=== PATIENT | female | born 1985 | race American Indian/Alaskan Native ===

== ENCOUNTER 2018-12-30 17:51 | Outpatient (CLI) | payer BC ==
[2018-12-30] MEDS ORDERED: LACTATED RINGERS 500 ML IV ONE (18:35)
[2018-12-30 18:48] LABS: Bilirubin,Urine NEG (Negative); Blood,Urine NEG (Negative); Color,Urine Yellow (Yellow); Mucus,Urine FEW /HPF; Protein,Urine <15 mg/dL mg/dL (Negative); Urobilinogen,Urine < 2.0 mg/dL (<2.0)
[2018-12-30 18:49] VITALS: BP 92/60
== END 2018-12-30 19:08 | disposition home or self-care (01) ==
LOC: TRG 17:51
PROVIDERS: ATTEND Obstetrics & Gynecology
DX: O47.02 False labor before 37 completed weeks of gestation, second trimester (principal); Z3A.21 21 weeks gestation of pregnancy
CPT/HCPCS: 59025; 81001

== ENCOUNTER 2019-05-15 19:00 | Outpatient (CLI) | payer BC ==
[2019-05-15 21:55] VITALS: BP 110/59
== END 2019-05-15 23:03 | disposition home or self-care (01) ==
LOC: TRG 19:00
PROVIDERS: ATTEND Obstetrics & Gynecology
DX: O62.9 Abnormality of forces of labor, unspecified (principal); Z3A.40 40 weeks gestation of pregnancy
CPT/HCPCS: 59025

== ENCOUNTER 2019-05-20 08:03 | Inpatient (IN) | payer BC ==
[2019-05-20] MEDS: LACTATED RINGERS 1,000 ML IV SCH (09:50)
[2019-05-20] MEDS ORDERED: LACTATED RINGERS 1,000 ML ONE (11:12)
[2019-05-20] MEDS ORDERED: BRETHINE SUB-Q PRN (12:55)
[2019-05-20] MEDS ORDERED: MINERAL OIL PO PRN (12:55)
[2019-05-20] MEDS ORDERED: PITOCin/NS 30 UNIT/500ML 30 UNITS/500 ML BAG IV SCH (13:00)
--- NOTE | 2019-05-20 13:03 | History and Physical Report ---
History of Present Illness Date of examination: 05/20/19 (pt presents for postdates IOL) Date of admission: 05/20/19 08:03 History of present illness: EDC Confirmation: 05/10/2019 Gestational Age: 8 4/7 weeks Past History : 1 Term Births: 0 Premature Births: 0 Living Children: 0 Para: 0 Mult. Births: 0 Prev : 0 Aborta: 0 Elect. Ab: 0 Spont. Ab: 0 Ectopics: 0 Past Medical History: Reviewed history from 09/24/2018 and no changes required: Kidney Stone 2009 Past Surgical History: Reviewed history from 09/10/2008 and no changes required: Negative Past Surgical History Family History Summary: Reviewed history Last on 04/05/2016 and no changes required:10/02/2018 Other family member - Has No Family History of Biliary Tract Cancer - Entered On: 09/24/2018 Other family member - Has No Family History of Breast Cancer - Entered On: 09/24/2018 Other family member - Has No Family History of Brain Cancer - Entered On: 09/24/2018 Other family member - Has No Family History of Colon Cancer - Entered On: 09/24/2018 Other family member - Has No Family History of Spontaneous DVT-PE - Entered On: 09/24/2018 Other family member - Has No Family History of Kidney/Urinary Tract Cancer - Entered On: 09/24/2018 Other family member - Has No Family History of Ovarvian Cancer - Entered On: 09/24/2018 Other family member - Has No Family History of Pancreatic Cancer - Entered On: 09/24/2018 Other family member - Has No Family History of Stomach Cancer - Entered On: 09/24/2018 Other family member - Has No Family History of Small Bowel Cancer - Entered On: 09/24/2018 Other family member - Has No Family History of Uterine Cancer - Entered On: 09/24/2018 General Comments - FH: No Family History of Breast Cancer No Family History of Colon Cancer No Family History of Ovarian Cancer No Family History of DVT/PE on OCP Social History: Reviewed history from 04/05/2016 and no changes required: Patient is single active: weekly Smoking History: Patient has never smoked. 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 Infection History HIV Risk Eval: no Genetic History Congenital Heart Defect: Mom: no Dad: no Norah Disease: Mom: no Dad: no Thalassemia Mom: no Dad: no Neural Tube Defect Mom: no Dad: no Down's Syndrome Mom: no Dad: no Igor-Sachs Mom: no Dad: no Sickle Cell Disease/Trait Mom: no Dad: no Hemophilia Mom: no Dad: no Muscular Dystrophy Mom: no Dad: no Cystic Fibrosis Mom: no Dad: no [place] Chorea Mom: no Dad: no Mental Retardation Mom: no Dad: no Fragile X Mom: no Dad: no Other Genetic/Chromosomal Disorder Mom: no Dad: no Child w/other defect Mom: no Dad: no Active Medications (reviewed today): PLUS 27-1 MG ORAL TABLET ( VIT-FE FUMARATE-FA) 1 po daily Current Allergies (reviewed today): No known allergies Past History - Obstetrical History Expected Date of Delivery: 05/09/19 Actual Gestation: 41 Week(s) 4 Day(s) : 1 Para: 0 Hx # Term Pregnancies: 0 Number of Pregnancies: 0 Spontaneous Abortions: 0 Induced : 0 Number of Living Children: 0 Medications and Allergies Allergies Allergy/AdvReac Type Severity Reaction Status Date / Time No Known Allergies Allergy Verified 12/30/18 18:14 Active Meds: Active Medications Ephedrine Sulfate (Ephedrine Sulfate) 10 mg IV Q2M PRN PRN Reason: Hypotension Oxytocin/Sodium Chloride (Pitocin/Ns 20 Unit/1000ml Drip) 20 units in 1,000 mls @ 125 mls/hr IV DIRECT ADA Mineral Oil (Mineral Oil) 30 ml PO QHS PRN PRN Reason: Constipation Terbutaline Sulfate (Brethine) 0.25 mg SUB-Q ONCE PRN PRN Reason: Hyperstimulation/Hypertonicity - Vital Signs Vital signs: Vital Signs Temp Pulse Resp BP 98.4 F 85 18 106/65 05/20/19 09:33 05/20/19 09:33 05/20/19 09:33 05/20/19 09:33 Temp Pulse Resp BP Pulse Ox 98.4 F 85 18 106/65 05/20/19 09:33 05/20/19 09:35 05/20/19 09:33 05/20/19 09:35 - Physical Exam Breasts: Positive: deferred Cardiovascular: Regular rate, Normal S1, Normal S2 Lungs: Positive: Normal air movement Abdomen: Positive: normal appearance, soft, normal bowel sounds. Negative: distention, tenderness Genitourinary (Female): Positive: normal external genitalia Vulva: both: normal Vagina: Positive: normal moisture. Negative: discharge Cervix: Negative: lesion, discharge Uterus: Positive: normal size, normal contour Adnexa: both: normal Anus/Rectum: Positive: normal perianal skin, heme negative. Negative: rectal mass, hemorrhoids Extremities: Positive: normal Deep Tendon Reflex Grade: Normal +2 - Obstetrical FHR: category 1 Uterine Contraction Monitor Mode: External Cervical Dilatation: 0 Cervical Effacement Percentage: 30 station: -3 Uterine Contraction Pattern: Irregular Uterine Tone Measurement Phase: Resting Uterine Contraction Intensity: Mild Results Result Diagrams: 05/20/19 10:10 All other labs normal. GBS Negative HBsAg Screen Negative Negative *1 RPR Non Reactive Non Reactive *2 Rubella Antibodies, IgG 21.00 index Immune >0.99 *3 Non-immune <0.90 Equivocal 0.90 - 0.99 Immune >0.99 ABO Grouping A *4 Rh Factor Positive *5 Please note: Prior records for this patient's ABO / Rh type are not available for additional verification. Antibody Screen Negative Negative *6 WBC 5.9 x10E3/uL 3.4-10.8 *7 RBC 3.93 x10E6/uL 3.77-5.28 *8 Hemoglobin 12.0 g/dL 11.1-15.9 *9 Hematocrit 35.7 % 34.0-46.6 *10 MCV 91 fL 79-97 *11 MCH 30.5 pg 26.6-33.0 *12 MCHC 33.6 g/dL 31.5-35.7 *13 RDW 13.7 % 12.3-15.4 *14 Platelets 166 x10E3/uL 150-379 *15 Neutrophils 61 % Not Estab. *16 Lymphs 28 % Not Estab. *17 Monocytes 8 % Not Estab. *18 Eos 2 % Not Estab. *19 Basos 1 % Not Estab. *20 ! Immature Cells <No Reported Value> *21 Neutrophils (Absolute) 3.7 x10E3/uL 1.4-7.0 *22 Lymphs (Absolute) 1.6 x10E3/uL 0.7-3.1 *23 Monocytes(Absolute) 0.5 x10E3/uL 0.1-0.9 *24 Eos (Absolute) 0.1 x10E3/uL 0.0-0.4 *25 Baso (Absolute) 0.0 x10E3/uL 0.0-0.2 *26 ! Immature Granulocytes 0 % Not Estab. *27 ! Immature Grans (Abs) 0.0 x10E3/uL 0.0-0.1 *28 ! NRBC <No Reported Value> *29 Hematology Comments: <No Reported Value> *30 Tests: (2) Panel 429578 ([id number]) HIV Screen 4th Generation wRfx Non Reactive Non Reactive *31 Tests: (3) HCV Ab w/Rflx to Verification (682557) ! HCV Ab <0.1 s/co ratio 0.0-0.9 *32 Tests: (4) Comment: ([id number]) ! Comment: SPR[facility] *33 Non reactive HCV antibody screen is consistent with no HCV infection, unless recent infection is suspected or other evidence exists to indicate HCV infection. Tests: (5) Urine Culture, Routine (315762) Urine Culture, Routine Final report *34 Tests: (6) Result ([id number]) ! Result 1 No growth *35 Assessment and Plan 34yo @ 41w4d for IOL GBS negative Pt has been thrombocytopenic during gestation and seeing hematology. Will get CBC and check plt ct. Cervidil to be placed. Pt agrees with POC. All questions addressed. - Patient Problems (1) 41 weeks gestation of Onset Date: ~05/20/19 Current Visit: Yes Status: Acute Plan to address problem: IOL Cervidil X 12 hours then Pitocin per protocol (2) Thrombocytopenia affecting Onset Date: ~05/20/19 Current Visit: Yes Status: Acute Plan to address problem: Pt aware of condition and aware she will not be a candidate for regional anesthesia if her plt ct is < 100
[2019-05-20 13:23] LABS: Hemoglobin 12.8 gm/dl (10.1-14.3); Mean Corpuscular HGB Conc 34 % (30-34); Mean Corpuscular Volume 97 fl (79-97); Red Blood Count 3.92 M/mm3 (3.65-5.03); Red Cell Distribution Width 13.2 % (13.2-15.2)
[2019-05-20] MEDS ORDERED: XYLOCAINE 2% INFILTRATI NR (13:30)
[2019-05-20] MEDS ORDERED: ZOFRAN IV PRN (13:30)
[2019-05-20 13:38] LABS: Platelet Count 73 K/mm3 (140-440)
[2019-05-20] MEDS ORDERED: CERVIDIL VG ONE (14:00)
[2019-05-20] MEDS ORDERED: AMBIEN PO PRN (19:04)
--- NOTE | 2019-05-20 19:07 | Event Note ---
Date: 05/20/19 (Regular diet) pt doing well Occ mild ctx occurring Cervidil due out @ 0200 Will start low dose pit @ 0300 Will see pt @ 0700 unless needed prior to that. Pt aware and agrees with POC
[2019-05-21] MEDS ORDERED: PITOCin/NS 30 UNIT/500ML 30 UNITS/500 ML BAG IV SCH (03:00)
[2019-05-21] MEDS: SUBLIMAZE IV PRN ×3 (03:31→13:00)
[2019-05-21] MEDS: LACTATED RINGERS 1,000 ML IV SCH ×2 (05:11→13:02)
--- NOTE | 2019-05-21 05:41 | Progress Note ---
Assessment and Plan Pt tolerating labor well SVE 2,70,-4 Vertex palpated Pitocin @ 2mu Clear fluid noted on pad after exam. Pt is aware she cannot be given epidural Plt Ct 73 Re- eval as needed - Patient Problems (1) 41 weeks gestation of Onset Date: ~05/20/19 Current Visit: Yes Status: Acute (2) Thrombocytopenia affecting Onset Date: ~05/20/19 Current Visit: Yes Status: Acute Subjective - Subjective Date of service: 05/21/19 (SROM @ 0215) Principal diagnosis: IUP @ 41w4d for IOL Day # 2 Interval history: EDC Confirmation: 05/10/2019 Gestational Age: 8 4/7 weeks Past History : 1 Term Births: 0 Premature Births: 0 Living Children: 0 Para: 0 Mult. Births: 0 Prev : 0 Aborta: 0 Elect. Ab: 0 Spont. Ab: 0 Ectopics: 0 Past Medical History: Reviewed history from 09/24/2018 and no changes required: Kidney Stone 2009 Past Surgical History: Reviewed history from 09/10/2008 and no changes required: Negative Past Surgical History Family History Summary: Reviewed history Last on 04/05/2016 and no changes required:10/02/2018 Other family member - Has No Family History of Biliary Tract Cancer - Entered On: 09/24/2018 Other family member - Has No Family History of Breast Cancer - Entered On: 09/24/2018 Other family member - Has No Family History of Brain Cancer - Entered On: 09/24/2018 Other family member - Has No Family History of Colon Cancer - Entered On: 09/24/2018 Other family member - Has No Family History of Spontaneous DVT-PE - Entered On: 09/24/2018 Other family member - Has No Family History of Kidney/Urinary Tract Cancer - Entered On: 09/24/2018 Other family member - Has No Family History of Ovarvian Cancer - Entered On: 09/24/2018 Other family member - Has No Family History of Pancreatic Cancer - Entered On: 09/24/2018 Other family member - Has No Family History of Stomach Cancer - Entered On: 09/24/2018 Other family member - Has No Family History of Small Bowel Cancer - Entered On: 09/24/2018 Other family member - Has No Family History of Uterine Cancer - Entered On: 09/24/2018 General Comments - FH: No Family History of Breast Cancer No Family History of Colon Cancer No Family History of Ovarian Cancer No Family History of DVT/PE on OCP Social History: Reviewed history from 04/05/2016 and no changes required: Patient is single active: weekly Smoking History: Patient has never smoked. 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 Infection History HIV Risk Eval: no Genetic History Congenital Heart Defect: Mom: no Dad: no Norah Disease: Mom: no Dad: no Thalassemia Mom: no Dad: no Neural Tube Defect Mom: no Dad: no Down's Syndrome Mom: no Dad: no Igor-Sachs Mom: no Dad: no Sickle Cell Disease/Trait Mom: no Dad: no Hemophilia Mom: no Dad: no Muscular Dystrophy Mom: no Dad: no Cystic Fibrosis Mom: no Dad: no Sebastián Chorea Mom: no Dad: no Mental Retardation Mom: no Dad: no Fragile X Mom: no Dad: no Other Genetic/Chromosomal Disorder Mom: no Dad: no Child w/other defect Mom: no Dad: no Active Medications (reviewed today): PLUS 27-1 MG ORAL TABLET ( VIT-FE FUMARATE-FA) 1 po daily Current Allergies (reviewed today): No known allergies Patient reports: movement normal Objective - Vital Signs Vital Signs: Vital Signs - 12hr 05/20/19 05/20/19 19:00 20:22 Temperature 97.9 F Pulse Rate 81 81 Respiratory 16 Rate Blood Pressure 95/61 Blood Pressure 95/61 [Right] - Exam Breasts: deferred Cardiovascular: Regular rate Lungs: Normal air movement Abdomen: Present: normal appearance, soft. Absent: distention, tenderness Uterus: Present: normal FHR: auscultation normal, category 1 Uterine Contraction Monitor Mode: External Cervical Dilatation: 2 Cervical Effacement Percentage: 70 station: -4 Uterine Contraction Pattern: Regular Uterine Tone Measurement Phase: Resting Uterine Contraction Intensity: Moderate Extremities: normal Deep Tendon Reflex Grade: Normal +2 - Labs Labs: Abnormal Labs 05/20/19 10:10 MCH 33 H Plt Count 73 L Laboratory Results - last 24 hr 05/20/19 05/20/19 10:10 10:10 WBC 6.4 RBC 3.92 Hgb 12.8 Hct 38.0 MCV 97 MCH 33 H MCHC 34 RDW 13.2 Plt Count 73 L Blood Type A POSITIVE Antibody Screen Negative
--- NOTE | 2019-05-21 08:03 | Progress Note ---
Assessment and Plan - Patient Problems (1) 41 weeks gestation of Onset Date: ~05/20/19 Current Visit: Yes Status: Acute Plan to address problem: EFW~3500, pelvis difficult to assess d/t patient's inability to tolerate exam well. Palpated adequate, patient aware. Will continue present course (2) Elderly primigravida in third trimester Current Visit: Yes Status: Acute (3) Thrombocytopenia affecting Onset Date: ~05/20/19 Current Visit: Yes Status: Acute Plan to address problem: Pain management and breathing/focusing techniques discuss. Anesthesia to alos discuss pain management limitations. Anticipated course explained, questions answered, She voiced understanding Subjective - Subjective Date of service: 05/21/19 Principal diagnosis: IUP @ 41w4d for IOL Day # 2 Patient reports: movement normal, contractions Objective - Vital Signs Vital Signs: Vital Signs - 12hr 05/20/19 05/21/19 05/21/19 20:22 07:33 07:35 Temperature 98.1 F Pulse Rate 81 87 74 Respiratory 18 Rate Blood Pressure 95/61 112/70 Blood Pressure 112/70 [Right] O2 Sat by Pulse 97 98 Oximetry 05/21/19 05/21/19 05/21/19 07:38 07:43 07:48 Temperature Pulse Rate 85 81 76 Respiratory Rate Blood Pressure Blood Pressure [Right] O2 Sat by Pulse 98 99 97 Oximetry 05/21/19 07:53 Temperature Pulse Rate 78 Respiratory Rate Blood Pressure Blood Pressure [Right] O2 Sat by Pulse 98 Oximetry - Exam Breasts: deferred Lungs: Normal air movement Abdomen: Present: soft Vulva: both: normal Uterus: Present: fundal height above umbilicus. Absent: tenderness FHR: category 1 Cervical Dilatation: 3 Cervical Effacement Percentage: 70 station: -2 Forbag AROM moderate meconium Uterine Contraction Frequency (min): 2 Uterine Contraction Pattern: Regular Extremities: normal - Labs Labs: Abnormal Labs 05/20/19 10:10 MCH 33 H Plt Count 73 L Laboratory Results - last 24 hr 05/20/19 05/20/19 10:10 10:10 WBC 6.4 RBC 3.92 Hgb 12.8 Hct 38.0 MCV 97 MCH 33 H MCHC 34 RDW 13.2 Plt Count 73 L Blood Type A POSITIVE Antibody Screen Negative
--- NOTE | 2019-05-21 12:59 | Progress Note ---
Assessment and Plan - Patient Problems (1) 41 weeks gestation of Onset Date: ~05/20/19 Current Visit: Yes Status: Acute Plan to address problem: Continue present course (2) Elderly primigravida in third trimester Current Visit: Yes Status: Acute (3) Thrombocytopenia affecting Onset Date: ~05/20/19 Current Visit: Yes Status: Acute Subjective - Subjective Date of service: 05/21/19 Principal diagnosis: IUP @ 41w4d for IOL Day # 2 Patient reports: movement normal, contractions Objective - Vital Signs Vital Signs: Vital Signs - 12hr 05/21/19 05/21/19 05/21/19 07:33 07:35 07:38 Temperature 98.1 F Pulse Rate 87 74 85 Respiratory 18 Rate Blood Pressure 112/70 Blood Pressure 112/70 [Right] O2 Sat by Pulse 97 98 98 Oximetry 05/21/19 05/21/19 05/21/19 07:43 07:48 07:53 Temperature Pulse Rate 81 76 78 Respiratory Rate Blood Pressure Blood Pressure [Right] O2 Sat by Pulse 99 97 98 Oximetry 05/21/19 05/21/19 05/21/19 07:58 08:03 08:08 Temperature Pulse Rate 82 79 83 Respiratory Rate Blood Pressure Blood Pressure [Right] O2 Sat by Pulse 98 98 97 Oximetry 05/21/19 05/21/19 05/21/19 08:13 08:18 08:23 Temperature Pulse Rate 81 82 82 Respiratory Rate Blood Pressure Blood Pressure [Right] O2 Sat by Pulse 97 98 97 Oximetry 05/21/19 05/21/19 05/21/19 08:28 08:33 08:38 Temperature Pulse Rate 75 82 89 Respiratory Rate Blood Pressure Blood Pressure [Right] O2 Sat by Pulse 97 97 98 Oximetry 05/21/19 05/21/19 05/21/19 08:43 10:25 12:49 Temperature Pulse Rate 79 73 65 Respiratory Rate Blood Pressure Blood Pressure [Right] O2 Sat by Pulse 98 97 87 Oximetry 05/21/19 12:54 Temperature Pulse Rate 73 Respiratory Rate Blood Pressure Blood Pressure [Right] O2 Sat by Pulse 97 Oximetry - Exam Breasts: deferred Cardiovascular: Regular rate Lungs: Normal air movement Vulva: both: normal Uterus: Present: fundal height above umbilicus. Absent: tenderness FHR: category 1 Cervical Dilatation: 4 Cervical Effacement Percentage: 70 station: -1 Uterine Contraction Pattern: Irregular (not tracing well, toco adjusted) - Labs Labs: Abnormal Labs 05/20/19 10:10 MCH 33 H Plt Count 73 L Laboratory Results - last 24 hr 05/20/19 05/20/19 05/20/19 10:10 10:10 10:10 WBC 6.4 RBC 3.92 Hgb 12.8 Hct 38.0 MCV 97 MCH 33 H MCHC 34 RDW 13.2 Plt Count 73 L RPR Nonreactive Blood Type A POSITIVE Antibody Screen Negative
[2019-05-21] MEDS ORDERED: STADOL ONE (14:55)
[2019-05-21] MEDS ORDERED: STADOL IV PRN (15:00)
[2019-05-21] MEDS ORDERED: PEPCID IV ONE ×2 (18:00→18:33)
[2019-05-21] MEDS ORDERED: REGLAN ONE (18:01)
[2019-05-21] MEDS ORDERED: BICITRA ONE (18:01)
[2019-05-21] MEDS ORDERED: BICITRA PO ONE (18:33)
[2019-05-21] MEDS ORDERED: REGLAN IV ONE (18:33)
--- NOTE | 2019-05-21 18:37 | Progress Note ---
Assessment and Plan - Patient Problems (1) 41 weeks gestation of Onset Date: ~05/20/19 Current Visit: Yes Status: Acute Plan to address problem: Patient now desires c/s. States she's now exhausted and unable to tolerate pain, she has not been able to get an epidural d/t low platelets/ Risks, complications, consequences and alternatives discussed. She was informed she may require c/s with each future . Questions were encouraged and answered, consents reviewed and signed, she voiced understanding and desires to proceed with maximilian. (2) Elderly primigravida in third trimester Current Visit: Yes Status: Acute (3) Thrombocytopenia affecting Onset Date: ~05/20/19 Current Visit: Yes Status: Acute Subjective - Subjective Date of service: 05/21/19 Principal diagnosis: IUP @ 41w4d for IOL Day # 2 Patient reports: movement normal, contractions Objective - Vital Signs Vital Signs: Vital Signs - 12hr 05/21/19 05/21/19 05/21/19 07:33 07:35 07:38 Temperature 98.1 F Pulse Rate 87 74 85 Respiratory 18 Rate Blood Pressure 112/70 Blood Pressure 112/70 [Right] O2 Sat by Pulse 97 98 98 Oximetry 05/21/19 05/21/19 05/21/19 07:43 07:48 07:53 Temperature Pulse Rate 81 76 78 Respiratory Rate Blood Pressure Blood Pressure [Right] O2 Sat by Pulse 99 97 98 Oximetry 05/21/19 05/21/19 05/21/19 07:58 08:03 08:08 Temperature Pulse Rate 82 79 83 Respiratory Rate Blood Pressure Blood Pressure [Right] O2 Sat by Pulse 98 98 97 Oximetry 05/21/19 05/21/19 05/21/19 08:13 08:18 08:23 Temperature Pulse Rate 81 82 82 Respiratory Rate Blood Pressure Blood Pressure [Right] O2 Sat by Pulse 97 98 97 Oximetry 05/21/19 05/21/19 05/21/19 08:28 08:33 08:38 Temperature Pulse Rate 75 82 89 Respiratory Rate Blood Pressure Blood Pressure [Right] O2 Sat by Pulse 97 97 98 Oximetry 05/21/19 05/21/19 05/21/19 08:43 09:30 10:25 Temperature 98.7 F Pulse Rate 79 73 Respiratory Rate Blood Pressure Blood Pressure [Right] O2 Sat by Pulse 98 97 Oximetry 05/21/19 05/21/19 05/21/19 12:49 12:54 12:55 Temperature Pulse Rate 65 73 65 Respiratory Rate Blood Pressure Blood Pressure [Right] O2 Sat by Pulse 87 97 92 Oximetry 05/21/19 05/21/19 05/21/19 12:59 13:01 13:04 Temperature Pulse Rate 67 61 71 Respiratory Rate Blood Pressure Blood Pressure [Right] O2 Sat by Pulse 95 94 94 Oximetry 05/21/19 05/21/19 05/21/19 13:07 13:09 13:14 Temperature Pulse Rate 69 66 68 Respiratory Rate Blood Pressure Blood Pressure [Right] O2 Sat by Pulse 94 96 96 Oximetry 05/21/19 05/21/19 05/21/19 13:19 13:24 13:29 Temperature Pulse Rate 66 65 67 Respiratory Rate Blood Pressure Blood Pressure [Right] O2 Sat by Pulse 95 96 96 Oximetry 05/21/19 05/21/19 05/21/19 13:34 13:39 13:44 Temperature Pulse Rate 69 65 64 Respiratory Rate Blood Pressure Blood Pressure [Right] O2 Sat by Pulse 97 96 98 Oximetry 05/21/19 05/21/19 05/21/19 13:49 13:54 13:59 Temperature Pulse Rate 69 68 63 Respiratory Rate Blood Pressure Blood Pressure [Right] O2 Sat by Pulse 98 98 98 Oximetry 05/21/19 05/21/19 05/21/19 14:04 14:34 15:02 Temperature Pulse Rate 68 78 75 Respiratory Rate Blood Pressure 126/74 122/85 Blood Pressure [Right] O2 Sat by Pulse 98 Oximetry 05/21/19 05/21/19 05/21/19 15:33 16:02 16:33 Temperature Pulse Rate 73 76 82 Respiratory Rate Blood Pressure 122/77 118/59 120/58 Blood Pressure [Right] O2 Sat by Pulse Oximetry 05/21/19 05/21/19 05/21/19 16:50 16:55 17:00 Temperature Pulse Rate 69 75 72 Respiratory Rate Blood Pressure Blood Pressure [Right] O2 Sat by Pulse 95 95 96 Oximetry 05/21/19 05/21/19 17:05 17:10 Temperature Pulse Rate 63 72 Respiratory Rate Blood Pressure 109/53 Blood Pressure [Right] O2 Sat by Pulse 93 97 Oximetry - Exam Lungs: Normal air movement - Labs Labs: Abnormal Labs 10/09/19 10:10 MCH 33 H Plt Count 73 L Laboratory Results - last 24 hr 05/20/19 10:10 RPR Nonreactive
[2019-05-21] MEDS ORDERED: HEMABATE IM PRN (18:45)
[2019-05-21] MEDS ORDERED: METHERGINE IM PRN (18:45)
[2019-05-21] MEDS ORDERED: CYTOTEC PR PRN (18:45)
--- NOTE | 2019-05-21 18:49 | Anesthesia Consultation ---
Anesthesia Consult and Med Hx Date of service: 05/21/19 - Airway Anesthetic Teeth Evaluation: Good Mallampati Class: Class II Intubation Access Assessment: Probably Good - Pulmonary Exam CTA: Yes - Cardiac Exam Cardiac Exam: RRR - Pre-Operative Health Status ASA Pre-Surgery Classification: ASA2 Proposed Anesthetic Plan: General - Pulmonary Hx Smoking: No Hx Asthma: No Hx Respiratory Symptoms: No SOB: No COPD: No Home Oxygen Therapy: No Hx Pneumonia: No Hx Sleep Apnea: No - Cardiovascular System Hx Hypertension: No Hx Coronary Artery Disease: No Hx Heart Attack/AMI: No Hx Angina: No Hx Percutaneous Transluminal Coronary Angioplasty (PTCA): No Hx Cardia Arrhythmia: No Hx Pacemaker: No Hx Internal Defibrillator: No Hx Valvular Heart Disease: No Hx Heart Murmur: No Hx Peripheral Vascular Disease: No - Central Nervous System Hx Neuromuscular Disorder: No Hx Seizures: No CVA: No Hx Back Pain: No Hx Psychiatric Problems: No - Gastrointestinal Hx Ulcer: No Hx Gastroesophageal Reflux Disease: No - Endocrine Hx Renal Disease: No Hx End Stage Renal Disease: No Hx Cirrhosis: No Hx Liver Disease: No Hx Insulin Dependent Diabetes: No Hx Non-Insulin Dependent Diabetes: No Hx Thyroid Disease: No Hx Hypothyroidism: No Hx Hyperthyroidism: No - Hematic Hx Anemia: No Hx Sickle Cell Disease: No - Other Systems Hx Alcohol Use: No Hx Substance Use: No Hx Cancer: No Hx Obesity: No
[2019-05-21] MEDS ORDERED: DILAUDID IV PRN ×2 (18:50)
[2019-05-21] MEDS ORDERED: PHENERGAN PO PRN (18:50)
[2019-05-21] MEDS ORDERED: ZOFRAN IV PRN ×2 (18:50→23:10)
[2019-05-21] MEDS ORDERED: PHENERGAN PR PRN (18:50)
--- NOTE | 2019-05-21 18:50 | Anesthesia Day of Surgery ---
Anesthesia Day of Surgery - Day of Surgery Patient Examined: Yes Patient H&P Reviewed: Yes Patient is NPO: Yes Beta Blockers: No Cardiac Clearance: No Pulmonary Clearance: No Carlitos's Test: N/A
[2019-05-21] MEDS ORDERED: SODIUM CHLORIDE FLUSH SYRINGE 10 ML IV NR (19:00)
[2019-05-21] MEDS ORDERED: ANCEF/STERILE WATER 2 GM/20 ML 2 GM/20 ML SYRINGE IV NR (19:00)
[2019-05-21] MEDS ORDERED: LACTATED RINGERS 1,000 ML IV SCH (19:00)
[2019-05-21] MEDS ORDERED: PITOCin/NS 20 UNIT/1000ML DRIP 20 UNITS/1,000 ML BAG IV SCH ×2 (19:00→23:10)
[2019-05-21] MEDS ORDERED: QUELICIN ONE (19:03)
[2019-05-21] MEDS ORDERED: DIPRIVAN 10 MG/ML IV ONE (19:04)
[2019-05-21] MEDS ORDERED: TORADOL ONE (19:05)
[2019-05-21] MEDS ORDERED: XYLOCAINE MPF 2% ONE (19:05)
[2019-05-21] MEDS ORDERED: ZOFRAN ONE (19:05)
[2019-05-21] MEDS ORDERED: SUBLIMAZE ONE (19:18)
[2019-05-21] MEDS ORDERED: VERSED ONE ×2 (19:18)
[2019-05-21] MEDS ORDERED: DILAUDID ONE ×2 (19:18→19:58)
[2019-05-21] MEDS ORDERED: WATER FOR IRRIG STERILE IR ONE (19:25)
[2019-05-21] MEDS ORDERED: NACL 0.9% IR ONE (19:25)
[2019-05-21] MEDS ORDERED: ROBINUL ONE (20:02)
--- NOTE | 2019-05-21 20:02 | Post Operative Note ---
Pre-op diagnosis: IUP@41 weeks, thrombocytopenia, elective primary Post-op diagnosis: same Anesthesia: GETA Surgeon: ABEL MANUEL Estimated blood loss: other (800mL) Condition: stable Disposition: PACU
[2019-05-21] MEDS ORDERED: NARCAN 0.4 MG/1 ML IV PRN ×3 (20:16→23:10)
--- NOTE | 2019-05-21 20:19 | Post Anesthesia Evaluation ---
- Post Anesthesia Evaluation Patient Participated: Yes Airway Patent: Yes Stable Respiratory Function: Yes Nausea/Vomiting: No Temp > 96.8F: Yes Pain Manageable: Yes Adequeate Hydration: Yes Anesthesia Complications: No Block Receding Appropriately: Yes Patient on Ventilator: No
[2019-05-21] MEDS ORDERED: MORPHINE PCA 30MG/30ML IV SCH (21:00)
[2019-05-21] MEDS ORDERED: NACL 0.9% 1000 ML 1,000 ML IV SCH (21:00)
[2019-05-21] MEDS: PITOCin/NS 20 UNIT/1000ML DRIP 20 UNITS/1,000 ML BAG IV SCH ×2 (21:03→21:04)
[2019-05-21] MEDS ORDERED: MILK OF MAGNESIA PO PRN (23:10)
[2019-05-21] MEDS ORDERED: TUCKS PAD TP PRN (23:10)
[2019-05-21] MEDS ORDERED: MYLICON PO PRN (23:10)
[2019-05-21] MEDS ORDERED: SODIUM CHLORIDE FLUSH SYRINGE 10 ML IV PRN (23:10)
[2019-05-21] MEDS ORDERED: TYLENOL PO PRN (23:10)
[2019-05-21] MEDS ORDERED: TYLENOL PR PRN (23:10)
[2019-05-21] MEDS ORDERED: LANSINOH TP PRN (23:10)
--- NOTE | 2019-05-22 00:02 | Operative Report ---
PREOPERATIVE DIAGNOSES: Intrauterine at 41 weeks, maternal exhaustion, thrombocytopenia, meconium-stained fluid, the patient desires elective primary . POSTOPERATIVE DIAGNOSES: Intrauterine at 41 weeks, maternal exhaustion, thrombocytopenia, meconium-stained fluid, the patient desires elective primary . PROCEDURE: Primary low transverse delivery. SURGEON: Shantell Carreon MD FIELD CARE MANAGER: Joelle Rivas CST. ANESTHESIA: General. COMPLICATIONS: None. ESTIMATED BLOOD LOSS: 800 mL. ANESTHESIOLOGIST: Dr. Scott. FINDINGS: Live born male , weight 7 pounds 3 ounces, Apgars 8 at 1 minute and 9 at 5 minutes. Grossly normal uterus, tubes, and ovaries. DESCRIPTION OF PROCEDURE: After risks, benefits, complications and consequences and alternatives for this procedure were discussed with the patient, consents were reviewed and signed and she voiced understanding and desired to proceed. She was taken to the OR and placed in the left lateral tilt position. Timeout was performed. She was prepped and draped in the usual sterile fashion. General anesthesia was induced. Pfannenstiel incision was made and extended to the fascia, which was incised and extended in a lateral direction. The overlying fascia was sharply dissected away from the underlying rectus muscles in a superior-inferior direction. The midline was entered bluntly. The vesicouterine fold was incised with the blunt dissection. Bladder flap was created. A transverse incision was made in the lower uterine segment and extended in superolateral direction with finger fractionation. Infant was delivered from the cephalic position with spontaneous cry and excellent tone. Cord was doubly clamped and cut. Infant was given to the resuscitation team present after mouth and nose were bulb suctioned. The placenta was manually extracted. The uterus was exteriorized and cleaned of any further products of conception and placental tissue. The incision was reapproximated using 0 Vicryl in a simple running stitch, followed by a further suture of 0 Vicryl in imbricating fashion. Mild uterine atony was noted that resolved with manual massage, Methergine 0.2 mg IM. Once the fundus was firm, the uterus was allowed back into the pelvic cavity. Grossly normal uterus, tubes, and ovaries were noted. The pelvis was irrigated with warm normal saline. Attention was turned to the lower uterine segment that was hemostatic. The pelvis was irrigated with warm normal saline. Surgicel was placed to ensure hemostasis. Once hemostasis was noted, the rectus muscles were reapproximated using 0 Vicryl in a simple stitch x 4. Once hemostasis was noted, the fascia was reapproximated using 0 Vicryl in a simple running stitch. Once hemostasis was noted, the skin was reapproximated using surgical stainless steel angela. The patient tolerated the procedure well and was taken to recovery room in stable condition. [facility]# [id number] ALEXANDER/HECTOR
[2019-05-22] MEDS: TORADOL IV SCH ×3 (01:39→23:33)
[2019-05-22] MEDS: D5LR 1,000 ML IV SCH ×2 (01:39→17:52)
[2019-05-22] MEDS: ANCEF/NS 1 GM/50 ML 1 GM/50 ML BAG IV SCH ×2 (04:04→11:26)
--- NOTE | 2019-05-22 08:04 | Progress Note ---
Assessment and Plan patient resting with eyes closed, reports being exhausted from yesterday. VSSAF, dressing D&I, lochia scant, fundus firm. srivastava remains in place, rn to d/c shortly. H&H ordered for 0800. Encouraged use of ISS and pain medication as needed. - Patient Problems (1) delivery delivered Current Visit: Yes Status: Acute Plan to address problem: continue postop pathway advance diet and activity as tolerated Subjective - Subjective Date of service: 05/22/19 Principal diagnosis: posop day day #1, 12hrs ; primary c/s Patient reports: pain well controlled, no flatus, no nauseated : doing well Objective - Vital Signs Latest vital signs: Vital Signs Temp Pulse Resp BP BP Pulse Ox 05/22/19 04:25 99.2 F 93 H 20 92/54 95 05/22/19 01:00 16 05/21/19 23:00 16 05/21/19 22:51 98.1 F 82 16 112/70 112/70 98 05/21/19 22:02 81 11 L 112/71 100 05/21/19 22:00 98.6 F 116 H 15 112/71 100 05/21/19 21:36 88 15 115/60 100 05/21/19 21:30 78 11 L 110/69 100 05/21/19 21:05 92 H 10 L 133/70 100 05/21/19 20:50 98.6 F 92 H 11 L 115/69 100 05/21/19 20:35 101 H 10 L 117/75 98 05/21/19 20:25 109 H 14 128/73 99 05/21/19 20:20 99.9 F H 123 H 16 112/83 98 05/21/19 18:54 73 119/60 05/21/19 18:53 75 95 05/21/19 18:35 98.7 F 05/21/19 17:10 72 97 05/21/19 17:05 63 109/53 93 05/21/19 17:00 72 96 05/21/19 16:55 75 95 05/21/19 16:50 69 95 05/21/19 16:33 82 120/58 05/21/19 16:15 98.6 F 05/21/19 16:02 76 118/59 05/21/19 15:33 73 122/77 05/21/19 15:02 75 122/85 05/21/19 14:34 78 126/74 05/21/19 14:04 68 98 05/21/19 14:00 98.3 F 05/21/19 13:59 63 98 05/21/19 13:54 68 98 05/21/19 13:49 69 98 05/21/19 13:44 64 98 05/21/19 13:39 65 96 05/21/19 13:34 69 97 05/21/19 13:29 67 96 05/21/19 13:24 65 96 05/21/19 13:19 66 95 05/21/19 13:14 68 96 05/21/19 13:09 66 96 05/21/19 13:07 69 94 05/21/19 13:04 71 94 05/21/19 13:01 61 94 05/21/19 12:59 67 95 05/21/19 12:55 65 92 05/21/19 12:54 73 97 05/21/19 12:49 65 87 05/21/19 12:30 98.7 F 05/21/19 10:25 73 97 05/21/19 09:30 98.7 F 05/21/19 08:43 79 98 05/21/19 08:38 89 98 05/21/19 08:33 82 97 05/21/19 08:28 75 97 05/21/19 08:23 82 97 05/21/19 08:18 82 98 05/21/19 08:13 81 97 05/21/19 08:08 83 97 05/21/19 08:03 79 98 Intake and Output 05/21/19 05/22/19 05/22/19 23:59 07:59 15:59 Intake Total 1200 120 Output Total 950 300 Balance 250 -180 Intake: IV 1200 PITOCin/NS 20 UNIT/1000ML 0 DRIP 20 units In 1,000 ml @ 125 mls/hr IV DIRECT ADA Rx#:[id number] Oral 120 Output: Urine 950 300 Uretheral (Srivastava) 700 Void 300 Other: Total, Intake Amount 120 Total, Output Amount 300 Estimated Blood Loss 800 - Exam Breasts: Present: normal Cardiovascular: Present: Regular rate Lungs: Present: Clear to auscultation, Normal air movement Abdomen: Present: normal appearance, soft Vulva: both: normal Uterus: Present: normal, firm, fundal height at umbilicus Extremities: Present: normal Incision: Present: normal, dry, dressed
[2019-05-22 08:16] LABS: Hematocrit 28.4 % (30.3-42.9); Hemoglobin 9.7 gm/dl (10.1-14.3)
[2019-05-22] MEDS ORDERED: NACL 0.9% 500 ML 500 ML ONE (09:58)
[2019-05-22] MEDS ORDERED: IBUPROFEN PO PRN (20:03)
[2019-05-23] MEDS ORDERED: TORADOL IV SCH
[2019-05-23] MEDS: TORADOL IV SCH (05:01)
[2019-05-23] MEDS ORDERED: BOOSTRIX IM ONE (06:00)
--- NOTE | 2019-05-23 08:41 | Progress Note ---
Assessment and Plan - Patient Problems (1) delivery delivered Current Visit: Yes Status: Acute Plan to address problem: +flatus today, Encouraged ambulation ?allow home tomorrow (2) 41 weeks gestation of Onset Date: ~05/20/19 Current Visit: Yes Status: Resolved (3) Elderly primigravida in third trimester Current Visit: Yes Status: Resolved (4) Thrombocytopenia affecting Onset Date: ~05/20/19 Current Visit: Yes Status: Acute (5) Anemia Current Visit: Yes Status: Acute Qualifiers: Other causes of anemia: acute posthemorrhagic Plan to address problem: Asymptomatic Observe for now Subjective - Subjective Date of service: 05/23/19 Principal diagnosis: postop day day #2, LTCS Patient reports: appetite normal, pain well controlled, flatus Objective - Vital Signs Latest vital signs: Vital Signs Temp Pulse Resp BP BP Pulse Ox 05/23/19 01:26 98.7 F 101 H 20 102/56 98 05/22/19 23:07 98.9 F 109 H 16 87/70 87/70 98 05/22/19 16:34 98.7 F 83 18 122/67 05/22/19 12:31 97.4 F L 92 H 18 93/58 05/22/19 09:55 88 80/43 98 Intake and Output 05/22/19 05/23/19 05/23/19 22:59 06:59 14:59 Intake Total 480 360 Output Total 600 Balance -120 360 Intake: Oral 480 Intake, Free Water 360 Output: Urine 600 Void 600 Other: Total, Intake Amount 480 Total, Output Amount 600 # Voids Void 1 3 - Exam Breasts: Present: normal. Absent: swelling, engorged Cardiovascular: Present: Regular rate Lungs: Present: Clear to auscultation, Normal air movement Abdomen: Present: normal appearance, soft, normal bowel sounds Uterus: Present: firm, fundal height below umbilicus. Absent: tenderness Extremities: Present: normal. Absent: tenderness, edema Incision: Present: normal, dry, intact - Labs Labs: Abnormal lab results 05/22/19 Range/Units 10:04 POC Glucose 113 H (70-105)
[2019-05-23] MEDS: PERCOCET 5/325 PO PRN ×2 (10:17→17:29)
[2019-05-24] MEDS: PERCOCET 5/325 PO PRN ×3 (00:18→14:04)
--- NOTE | 2019-05-24 09:33 | Discharge Summary ---
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 She was unable to have an epidural, she progressed to 5cm and elected to have a c/s for maternal exhaustion. LTCS was performed w/o complications. Post op course was unremarkable Disposition: DC-01 TO HOME OR SELFCARE - Discharge Diagnoses (1) delivery delivered Status: Acute (2) 41 weeks gestation of Status: Resolved (3) Elderly primigravida in third trimester Status: Resolved (4) Thrombocytopenia affecting Status: Acute (5) Anemia Status: Acute Qualifiers: Other causes of anemia: acute posthemorrhagic Core Measure Documentation - Palliative Care Palliative Care/ Comfort Measures: Not Applicable - Core Measures Any of the following diagnoses?: none Exam - Constitutional Vitals: Temp Pulse Resp BP Pulse Ox 98.7 F 96 H 18 96/56 99 05/24/19 02:25 05/23/19 15:50 05/24/19 02:25 05/24/19 02:25 05/23/19 15:50 General appearance: Present: no acute distress - Respiratory Respiratory effort: normal Respiratory: bilateral: CTA - Cardiovascular Rhythm: regular - Extremities Extremities: no ischemia Extremity abnormal: edema (trace) - Abdominal General gastrointestinal: Present: soft, normal bowel sounds. Absent: tender Female genitourinary: Present: other (fundus firm, 3f below umb) - Integumentary Integumentary: Present: clear, warm, dry (Incision: c/d/i) - Musculoskeletal Musculoskeletal: strength equal bilaterally - Psychiatric Psychiatric: appropriate mood/affect, intact judgment & insight, memory intact, cooperative Plan Activity: other (no sex, no driving, ambulate on your property ~1mile a day, stay on your property) Weight Bearing Status: Full Weight Bearing Diet: regular Wound: open to air, keep clean and dry Follow up with: RONALD TORRES MD [Staff Physician] - 05/28/19 1:30 pm ([employer]) Prescriptions: Lidocain2.5%/Prilocai2.5% [Emla] 5 gm TP ONCE #1 tube Ibuprofen [Motrin] 800 mg PO Q8H PRN #30 tablet PRN Reason: Pain oxyCODONE /ACETAMINOPHEN [Percocet 5/325 mg] 1 - 2 tab PO Q4HR PRN #20 tablet PRN Reason: Pain
[2019-05-24 14:30] VITALS: BP 115/65
== END 2019-05-24 15:10 | disposition home or self-care (01) | DRG 787 ==
LOC: LD 08:03 → OB 05-21 23:03
PROVIDERS: ADMIT Obstetrics & Gynecology; ATTEND Obstetrics & Gynecology
PROC: 10D00Z1 Extraction of Products of Conception, Low, Open Approach (ICD-10-PCS; principal; 2019-05-21)
PROC: 3E0234Z Introduction of Serum, Toxoid and Vaccine into Muscle, Percutaneous Approach (ICD-10-PCS; 2019-05-23)
DX: O99.12 Other diseases of the blood and blood-forming organs and certain disorders involving the immune mechanism complicating childbirth (principal); D62 Acute posthemorrhagic anemia; D69.6 Thrombocytopenia, unspecified; O48.0 Post-term pregnancy; O77.0 Labor and delivery complicated by meconium in amniotic fluid; O75.81 Maternal exhaustion complicating labor and delivery; O99.02 Anemia complicating childbirth; Z3A.41 41 weeks gestation of pregnancy; Z37.0 Single live birth; Z87.442 Personal history of urinary calculi; Z23 Encounter for immunization
CPT/HCPCS: 36415; 59200; 82962; 85014; 85018; 85027; 86592; 86850; 86900; 86901; 93005; 93010; G0378; C1765; J0330; J0595; J0690; J1170; J1885; J2210; J2250; J2270; J2405; J2590; J2704; J2765; J3010; J7040; J7120; J7121